=== PATIENT | female | born 1940 | race Caucasian/White ===

== ENCOUNTER 2020-03-06 15:46 | Inpatient (IN) | payer OTHER ==
[~2020-03-06] VITALS: Ht 170.2 cm; Wt 75.3 kg
[2020-03-06 15:55] VITALS: BP 116/84
[2020-03-06 16:32] LABS: BE(vivo) -1.8 mmol/L (-2 to +3); HCO3 22.7 mmol/L (22.0-26.0); PCO2 37.5 mmHg (35.0-45.0); PO2 64.7 mmHg (80.0-100.0); pH 7.399 (7.360-7.450); sO2 92.8 % (92.0-98.0)
[2020-03-06 16:49] LABS: ABSOLUTE NEUTROPHILS 3.8 thou/uL (1.4-8.2); BASOPHILS 0.5 % (0.0-2.0); HEMATOCRIT 36.7 % (37.0-47.0); HEMOGLOBIN 12.3 gm/dL (12.0-15.0); LYMPHOCYTES 19.5 % (24.0-44.0); MCH 31.4 pg (26.0-34.0); MCHC 33.5 g/dL (28.0-37.0); MCV 93.6 fL (80.0-100.0); MONOCYTES 8.9 % (1.0-8.0); PLATELET COUNT 119 thou/uL (150-400); POLYS 71.1 % (36.0-66.0); RBC 3.92 mil/uL (4.20-5.00); RDW 14.8 % (10.5-14.5); WBC 5.4 thou/uL (4.0-11.0)
[2020-03-06 17:09] LABS: ANION GAP 12 mmol/L (7-16); BUN 62 mg/dL (7-18); CALCIUM 9.1 mg/dL (8.5-10.1); CHLORIDE 106 mmol/L (98-107); CO2 22 mmol/L (21-32); CREATININE 2.7 mg/dL (0.6-1.0); GLUCOSE 176 mg/dL (74-106); POTASSIUM 4.8 mmol/L (3.5-5.1); SODIUM 140 mmol/L (136-145)
[2020-03-06 17:19] LABS: ALBUMIN 2.7 g/dL (3.4-5.0); SGOT 83 U/L (15-37); SGPT 27 U/L (30-65); TOTAL BILIRUBIN 0.7 mg/dL (0.2-1.0); TOTAL PROTEIN 7.2 g/dL (6.4-8.2); TROPONIN-I <0.06 ng/mL (<0.06)
[2020-03-06] MEDS ORDERED: NORVASC 2.5 MG2.5 M1 PO (19:05)
[2020-03-06] MEDS ORDERED: CARVEDILOL25 MG PO (19:05)
[2020-03-06] MEDS ORDERED: LEVEMIR100 UNIT/1 SUBQ (19:06)
[2020-03-06] MEDS ORDERED: LEVOTHYROXINE25 MCG PO (19:06)
[2020-03-06] MEDS ORDERED: INVEGA6 MG PO (19:06)
[2020-03-06] MEDS ORDERED: ATORVASTATIN CA20 MG PO (19:07)
[2020-03-06] MEDS ORDERED: METFORMIN HCL500 MG PO (19:07)
[2020-03-06] MEDS ORDERED: LISINOPRIL40 MG PO (19:07)
[2020-03-06] MEDS ORDERED: SYMBICORT160 MCG/4. INH (19:08)
[2020-03-06] MEDS ORDERED: NOVOLOG100 UNIT/1 SUBQ (19:08)
[2020-03-06] MEDS ORDERED: FIBERCON625 M1 PO (19:09)
[2020-03-06] MEDS ORDERED: DAIRY RELIE3000 UNIT PO (19:10)
[2020-03-06 20:02] VITALS: BP 99/53
[2020-03-06 20:42] VITALS: BP 96/46
--- NOTE | 2020-03-06 22:04 | NUR ---
SPOKE TO DTR MARRY, NICOLASA UPDATED. DESIGNATED VISITOR ESTABLISHED AND CHARTED.
[2020-03-07 01:16] VITALS: BP 108/49
--- NOTE | 2020-03-07 03:56 | NUR ---
ADMITTED FROM ER UNDER 'S CARE. PT NON-VERBAL AND DISORIENTED X 4 UPON ARRIVAL. SPOKE TO DTR MARRY OVER THE PHONE AND DTR SAID PT HAS BEEN INCREASINGLY DISORIENTED AND NON-VERBAL. NOTED. VISITED PT AT BEDSIDE. ORDERED URINE SAMPLE AND SPUTUM SAMPLE WELL COVID PCR. REPORTED TO THAT PT IS UNABLE TO COUGH UP SPUTUM EVEN IF SHE'S PRODUCING ANY, PT UNABLE TO FOLLOW DIRECTIONS. PER , IT'S OK FOR SPUTUM NOT TO BE COLLECTED AT THIS TIME. FOR URINE, REPORTED PT INCONTIENET. GAVE ONE TIME ORDER FOR STRAIGHT CATH, COLLECTED AND SENT WITH COVID. WANTS TO TRANSFUSE CONVALESCENT PLASMA. CONSENT WAS PRINTED OUT PER 'S DIRECTION. SAID TO CALL DTR IN AM AND OBTAIN CONSENT AND CALL HIM BACK WITH ADDITIONAL INFO AND CONSENT. WILL ENDORSE TO ONCOMING NURSR OR FOLLOW UP. IV REPLACED AND WRAPPED. VSS. NO S/S ACUTE DISTRESS NOTED OR REPOTED AT THIS TIME. WILL CONT TO MONITOR FOR ANY CHANGES IN CONDITION.
[2020-03-07 04:03] VITALS: BP 106/41
[2020-03-07 06:16] LABS: HEMATOCRIT 36.4 % (37.0-47.0); HEMOGLOBIN 11.8 gm/dL (12.0-15.0); MCHC 32.3 g/dL (28.0-37.0); MCV 95.9 fL (80.0-100.0); RBC 3.8 mil/uL (4.20-5.00); RDW 15.3 % (10.5-14.5); WBC 5.7 thou/uL (4.0-11.0)
[2020-03-07 06:39] LABS: ALBUMIN 2.4 g/dL (3.4-5.0); CALCIUM 8.3 mg/dL (8.5-10.1); CREATININE 3.2 mg/dL (0.6-1.0); POTASSIUM 4.5 mmol/L (3.5-5.1)
[2020-03-07 07:28] VITALS: BP 128/48
--- NOTE | 2020-03-07 07:56 | EKG ---
[facility] [address] [place] [address] ELECTROCARDIOGRAM REPORT Name: SALIMA STARK Room #: 352- ADM IN M.R.#: [id number] Admission: 03/06/20 Attend Phys: Ana Rosa Mccarthy Discharge: Date of : 42 Report #: [id number] THIS REPORT FOR: cc: Derian Schulz MD, Srinath MD Lundgren,Ajit Matta MD [facility] THIS REPORT FOR: //name// [facility] ED Test Date: 2020-03-06 Test Time: 16:44:59 Pat Name: SALIMA STARK Department: Room: [facility] Gender: F Assurance Manager: : 1940 Requested By: Agnes Arellano Order Number: [id number] MD: Ajit Delacruz Measurements Intervals [place] Rate: 84 P: 34 IA: 165 QRS: -17 QRSD: 86 T: 5 QT: 331 QTc: 392 Interpretive Statements Sinus rhythm Borderline left axis deviation Abnormal R-wave progression, late transition No previous ECG available for comparison Electronically Signed On 03-07-2020 7:56:21 CDT by Ajit Delacruz [email or web address] <ELECTRONICALLY SIGNED> By: Ajit Delacruz MD, FACC 03/07/20 0756 [id number] Ajit Delacruz MD, [facility] /EPI
[2020-03-07 11:35] VITALS: BP 137/56
--- NOTE | 2020-03-07 16:33 | NUR ---
ASSESSMENT: CM REVIEWED CHART AND SPOKE WITH PATIENTS DAUGHTER/GUARDIAN ALBERTO [phone]. PT WAS ADMITTED FROM [facility] WHERE SHE TESTED POSITIVE FOR COVID 19 AND WAS FOUND TO BE MORE LETHARGIC THEN USUAL. PT NORMALLY DOES NOT WEAR OXYGEN BUT REQUIRED 6L. PER PATIENTS DAUGHTER PT NORMALLY AMBULATES THERE INDEPENDENTLY, JUST SLOW. CM FAXED CLINICAL TO [facility] TO UPDATE THEM ON CLINICAL. CM CONTACTED ANGEL AT [facility] WHO STATES THEY REQUIRE 2 NEGATIVE COVID TEST BEFORE THEY CAN ACCEPT PATIENTS BACK. CM CONTACTED PATIENTS DAUGHTER TO UPDATE HER ON [facility] PROTOCOL FOR POSITIVE COVID PATIENTS AND THEY WILL NOT ACCEPT BACK UNTIL TWO NEGATIVE TEST RESULTS. CM WILL CONTINUE TO FOLLOW TO ASSIST NEEDED.
[2020-03-07 17:11] VITALS: BP 144/110
[2020-03-07 19:24] VITALS: BP 133/54
--- NOTE | 2020-03-07 19:30 | NUR ---
ASSUMED CARE OF PT AT 0700, PT A GCS OF 9-10 MOST OF THE DAY. PT DOES NOT SEEM TO BE IN ANY PAIN. PT HAS BEEN NON VERBAL THE WHOLE DAY. PT NOTED TO BE POCKETTING FOOD AND SPEECH THERAPY CONSULTED. VSS. DR BEAVERS ON THE OBTAINING OF COSENT FO CONVALESCENT PLASMA, MESSAGE LEFT WIT ANSWERING SERVICE. PT RESTING NOW WITH EYES CLOSED. T
--- NOTE | 2020-03-08 02:05 | NUR ---
PATIENT ASSESSED. SKIN WARM AND DRY.RESP EVEN AND UNLABORED.LETHARGIC , NON VERBAL. DID SEE HER DAUGHTER BY VIDEO CHAT, DID NOT SAY ANYTHING BUT SEEN HER DAUGHTER ALBERTO. TURNED Q 2 HOURS. AMS. DOES NO FOLLOW COMANDS. NO EDEMA NOTED. IV PATENT WITH FLUIDS INFUSING WELL. CONSENT FOR CONVALESCEN BLOOD AND PERMIT TO INFUSED CONSENT BY PHONE WITH DAUGHTER ALBERTO, WITNESS BY 2 RN'S. NPO BECAUSE SHE HAS BEEN POCKETING HER FOOD IN HER CHEEKS.DAUGHTER STATED SHE LIKES BOILED EGGS, COTTAGE CHEESE, AND HER FOOD SOFT. 02 AT 6LNC. DENIES ANY PAIN OR SOA. IV SITE HEALTHY. DR BEAVERS SEEN P[ATIENT TONIGJHT AND HER KNOWS ABOUT GRAM + COCCI IN BLOOD, DIET NEEDS.INCONTENENT HAS A PURVICK CATH. WITH YELLOW RETURN. LUNGS CTA-DISM.SCD'S ON. CONT PLAN OF CARE. T
[2020-03-08 02:06] LABS: HIV ANTIBODY Non Reactive (Non Reactive)
[2020-03-08 04:09] VITALS: BP 130/62
[2020-03-08 06:22] LABS: ABSOLUTE NEUTROPHILS 8.5 thou/uL (1.4-8.2); BASOPHILS 0.1 % (0.0-2.0); HEMATOCRIT 36.9 % (37.0-47.0); HEMOGLOBIN 11.8 gm/dL (12.0-15.0); LYMPHOCYTES 6.6 % (24.0-44.0); MCHC 32.1 g/dL (28.0-37.0); MCV 96.5 fL (80.0-100.0); PLATELET COUNT 130 thou/uL (150-400); POLYS 87.3 % (36.0-66.0); RBC 3.82 mil/uL (4.20-5.00); RDW 15.3 % (10.5-14.5); WBC 9.8 thou/uL (4.0-11.0)
[2020-03-08 06:30] LABS: INR 1.1; PROTIME 10.8 Seconds (9.3-11.4)
[2020-03-08 06:35] LABS: FIBRINOGEN 605.8 mg/dL (210-360)
[2020-03-08 06:41] LABS: ALBUMIN 2.5 g/dL (3.4-5.0); CREATININE 2.6 mg/dL (0.6-1.0); POTASSIUM 4.3 mmol/L (3.5-5.1); TOTAL BILIRUBIN 0.4 mg/dL (0.2-1.0); TOTAL PROTEIN 7.1 g/dL (6.4-8.2)
[2020-03-08 08:08] VITALS: BP 126/56
[2020-03-08 12:01] VITALS: BP 118/80
--- NOTE | 2020-03-08 14:28 | NUR ---
KATIUSKA reviewed chart and spoke with nursing and attending physician. Pt remains in Enhanced Isolation due to COVID-19. Pt remains on IV abx and 6L of O2. ST to evaluate pt. No weekend discharge planned. KATIUSKA spoke with Patti at [facility] to provide update. Per Patti, they are able to accept pt back when medically stable. Will confirm on Wednesday, if facility needs a new COVID test. KATIUSKA is following to assist a needed with discharge planning.
[2020-03-08 16:51] VITALS: BP 129/65
--- NOTE | 2020-03-08 19:46 | NUR ---
PT IS CONFUSED, AND PT DOES NOT TALKING AND DOES NOT FOLLOW COMMANDS, PT IS CONTINUING ISOLATION FOR POSITIVE COVID, PT IS CONTINUING IV ABX AND IV FLUID, PT HAS MEDICATION FOR LOW FEVER TEMP 100.2F, PT NEEDS HELP MEALS AND CHANGE POSITION, PT IS ON O2 6L/MIN/NC, RN HAS UPDATED PT'S INFORMATION TO PT'S FAMILY, ID HAS NEW ORDER TRANSFUSION CONVALESCENT PLASMA 1 UNIT, RN WILL REPORTED TO NEXT SHIFT.
[2020-03-08 21:31] VITALS: BP 144/69
[2020-03-09] VITALS (8 sets, daily range): BP systolic 117–162; BP diastolic 48–100
[2020-03-09 07:43] LABS: CALCIUM 9.4 mg/dL (8.5-10.1); POTASSIUM 4.4 mmol/L (3.5-5.1)
--- NOTE | 2020-03-09 08:12 | NUR ---
ASSUME CARE 1900. PT/VITALS STABLE. A/O TO SELF BUT CAN FOLLOW SOME COMMANDS. MOANS WITH MOVEMENT. 6LNC AND SATS ABOUT 94%. INCONTINENT OF URINE. CONVALESCENT PLASMA TRANSFUSED X 1 UNIT. PLAN IS TO CONTIUE TO MONITOR AND IMPROVE LOC AND RESPIRATORY FUNCTION. WILL CONTINUE TO MONITOR AND FOLLOW WITH POC
[2020-03-09 19:17] LABS: FOLIC ACID 7.3 ng/mL (8.6-58.9); TSH 0.792 uIU/mL (0.358-3.740)
--- NOTE | 2020-03-09 19:40 | NUR ---
PT STILL OPENS HER EYES, BUT PT DOES NOT TALK ,AND PT DOES NOT FOLLOW COMMANDS, PT STARTS EATING AND DRINKING WITH ASSIST, PT IS CONTINUING O2 6L/MIN/NC, PT'S VS ARE STABLE,
[2020-03-09 22:22] LABS: URINE BILIRUBIN NEGATIVE (Negative); URINE BLOOD 3+ (Negative); URINE CLARITY SL CLOUDY; URINE COLOR YELLOW; URINE GLUCOSE-RANDOM* 1+ (Negative); URINE KETONES NEGATIVE (Negative); URINE NITRITE-REFLEX NEGATIVE (Negative); URINE PROTEIN (DIPSTICK) 1+ (Negative); URINE SPECIFIC GRAVITY 1.015 (1.005-1.035); URINE UROBILINOGEN 0.2 E.U./dl (0.2-1.0)
[2020-03-09 22:39] LABS: URINE LEUKOCYTES-REFLEX 1+ (Negative)
[2020-03-09 22:47] LABS: AMORPHOUS URATES Many /LPF (None Seen); URIC ACID CRYSTALS >10 Many /LPF (None Seen)
[2020-03-09 22:48] LABS: BACTERIA-REFLEX >30 Many /HPF (None Seen); COARSE GRANULAR CASTS 0-3 Few /LPF (None Seen); FINE GRANULAR CASTS 0-3 Few /LPF (None Seen); HYALINE CASTS 0-3 Few /LPF (None Seen); MUCUS 4-6 Moderate strn/LPF (None Seen); SQUAMOUS None Seen /LPF (0-3); TRANSITIONAL EPITHEL CELL 0-3 Few /LPF (None Seen)
--- NOTE | 2020-03-10 02:16 | NUR ---
PT CONFUSED , OPENS EYES TO TOUCH OR LOUD VOUICE. MOVES HANDS AT TIMES. SPEECH IS IMCOPREHENSIBLE MOANS. TYLENOL GIVEN FOR POSSIBLE PAIN. PT WAS MOANING. PT REPOSITIONED Q 2 HRS, PT STRAIGHT CATHED AND UA SENT TO LAB. VSS AFEBRILE. SATS 91-95% ON MONITOR. MOISTURE BARRIER TO BUTTOCKS AND PERINEAL AREA. SPOKE WITH PTS DAUGHTER. UNABLRE TO GET FACETIME TO WORK. WILL CONTINUE TO MONITOR PT FOR CHANGES.
[2020-03-10 03:53] VITALS: BP 145/87
[2020-03-10 05:42] LABS: HEMATOCRIT 33.5 % (37.0-47.0); HEMOGLOBIN 10.8 gm/dL (12.0-15.0); MCHC 32.3 g/dL (28.0-37.0); MCV 96.2 fL (80.0-100.0); PLATELET COUNT 126 thou/uL (150-400); RBC 3.48 mil/uL (4.20-5.00); RDW 15.7 % (10.5-14.5); WBC 5.4 thou/uL (4.0-11.0)
--- NOTE | 2020-03-10 05:58 | NUR ---
PT PROGRESSING SLOWLY TOWARDS D/C GOALS VSS AFEBRILE. NSR ON MONITOR SAT 93%. BED ALARM ON .
[2020-03-10 06:11] LABS: ALBUMIN 2.3 g/dL (3.4-5.0); CALCIUM 8.9 mg/dL (8.5-10.1); CREATININE 1.8 mg/dL (0.6-1.0); MAGNESIUM 2.2 mg/dL (1.8-2.4); PHOSPHORUS 2.6 mg/dL (2.5-4.9); POTASSIUM 4.2 mmol/L (3.5-5.1); TOTAL BILIRUBIN 0.4 mg/dL (0.2-1.0); TOTAL PROTEIN 6.9 g/dL (6.4-8.2)
[2020-03-10 07:46] VITALS: BP 142/79
[2020-03-10 07:47] VITALS: BP 142/79
[2020-03-10 11:23] LABS: ABSOLUTE NEUTROPHILS 4.8 thou/uL (1.4-8.2); METAMYELOCYTES 1 %
[2020-03-10 15:25] VITALS: BP 132/112
--- NOTE | 2020-03-10 19:00 | NUR ---
PT STARTED SHIFT ON 6L...WAS INCREASED TO NRB BY NOON...DRS NOTIFIED OF HER STRUGGLING AND DR MOY SPOKE WITH FAMILY AND DECISION WAS MADE FOR [facility] CARES...FAMILY WAS CALLED PER FACETIME AND THEY SPOKE TO HER FOR 30 MIN...AT THAT TIME SHE WAS MEDICATED WITH MORPHINE AND NRB WAS REMOVED AND 10L WAS PLACED ON PATIENT...WILL MONITOR
[2020-03-10 20:53] VITALS: BP 143/83
[2020-03-11 04:33] VITALS: BP 138/59
--- NOTE | 2020-03-11 06:53 | NUR ---
PT NOT PROGRESSING TOWARD D/C GOALS. SHE IS NOW ON COMFORT CARE. MEDICATED SEVERAL TIMES TONIGHT WITH MORPHINE IV FOR LABORED BREATHING. RESPIRATINS BECAME SLOWER THIS AM AROUND 0500 AM. DAUGHTERS WERE NOTIFIED VIA [employer] VIDEO CHAT. BOTH DAUGHTERS ARE VISITING WITH PT. VIA [employer].
[2020-03-11 08:31] VITALS: BP 164/67
--- NOTE | 2020-03-11 16:57 | NUR ---
FAXED CLINICAL UPDATE TO [facility] SPOKE WITH NANCY IN ADM SHE RECEIVED UPDATE. DP TO FOLLOW.
--- NOTE | 2020-03-11 19:22 | NUR ---
PT AWAKE AND FAMILY FACETIMING PATIENT ENTIRE SHIFT...SATS 93% 6L...MEDICATED X 1 FOR AIR HUNGER...APPEARS COMFORTABLE...
[2020-03-11 19:30] VITALS: BP 162/84
--- NOTE | 2020-03-11 22:35 | NUR ---
PT REMAINS ON COMFORT CARE. MORPHINE 4 MG GIVEN FOR AIR HUNGER. SHE IS NOW RESTING BETTER. FAMILY IS FACETIMING PT PRESENTLY. CONTINUING WITH COMFORT MEASURES.
[2020-03-12 03:26] VITALS: BP 143/49
[2020-03-12 04:10] VITALS: BP 129/55
--- NOTE | 2020-03-12 08:31 | NUR ---
PT ON COMFORT CARE. SAT 93-95%. CONTINUING MORPHINE FOR SOA.
[2020-03-12 09:22] VITALS: BP 111/62
--- NOTE | 2020-03-12 17:17 | NUR ---
ASSUMED CARE OF PT AT SHIFT CHANGE. COMFORT CARE CONTINUES. MORPHINE GIVEN NEEDED FOR AIR HUNGER. RESP RATE DECREASED TO 6-7/MIN THIS AFTERNOON. THIS NURSE INTITIATED FACETIME WITH FAMILY AND PT. WILL CONTINUE TO MONITOR.
--- NOTE | 2020-03-12 17:36 | NUR ---
KATIUSKA reviewed chart and spoke with nursing and attending physician. Pt remains on comfort care measures. Pt is Enhanced Isolation due to COVID-19. KATIUSKA spoke with Patti at [facility], who states they are able to accept pt back on hospice if pt is stable for transport. KATIUSKA spoke with pt's dtr, Mindy, via phone to provide update and discuss discharge plan. Pt's dtr states they would like to speak with palliative care physician to discuss plan of care. Plan is to watch pt overnight and see how she is tomorrow. Will determine if pt is stable enough to discharge back to [facility] with hospice. KATIUSKA is following to assist as needed with discharge planning.
[2020-03-12 21:04] VITALS: BP 151/61
--- NOTE | 2020-03-12 21:30 | NUR ---
CONTACTED FAMILY MEMBER MONIK THIS EVENING TO SET UP A VIDEO CHAT WITH SALIMA THE PATIENT. FAMILY WAS GLAD TO SEE THE PT. PT WAS PROVIDED 2MG OF MORPHINE FOR COMFORT MEASURE. PT HAD TREMORS ON BOTH ARMS, ASKED FAMILY MEMBERS, PER THEM IT IS NORMAL FOR HER TO PRESENT THIS ACTION. FAMILY WAS HAPPY TO SEE THEIR MOTHER, STATED GRATITUDE. RN NOTIFIED FAMILY THAT FACETIME CAN BE AVAILABLE TOMORROW NIGHT IF THE PT IS STILL AT FACILITY. LUNG SOUNDS ARE COARSE. CURRENTLY ON 6L OF OXYGEN VIA NC, AT 97% SAO2 AND 77HR. WILL CHECK UP ON PT PERIODICALLY AND UPDATE FAMILY OR NOTES NEEDED. AT THIS TIME PT IS GOING IN AND OUT OF SLEEP, WILL LEAVE PT TO BE TO PROMOTE REST NOW.
[2020-03-13 08:04] VITALS: BP 131/53
[2020-03-13] MEDS ORDERED: MSL20MG/ML SUBLING (12:30)
--- NOTE | 2020-03-13 16:13 | NUR ---
DISCHARGE NOTE: SW reviewed chart and spoke with nursing. Pt in Enhanced Isolation due to COVID-19 on comfort care measures. Pt's repeat test is positive. KATIUSKA left message for medical staff services coordinator at [facility] to discuss pt's return to the facility with orders for hospice to evaluate and admit pt. Palliative care physician spoke with pt's family last evening, who are all agreeable with plan for pt to return to [facility] with hospice. KATIUSKA received call back from Patti at [facility] who states they are able to accept pt back today. Facility requests ambulance transportation to be scheduled between [id number]. KATIUSKA arranged ambulance for 1700. Confirmed that [facility] is aware that pt is COVID positive. KATIUSKA faxed finalized discharge orders/summary and COVID results to [facility]. KATIUSKA spoke with pt's dtr, Ginette, to provide update and notify of discharge time. Pt's dtr is aware and agreeable with plan. Pt's family to initiate hospice at [facility]. Patti has discussed options with pt's family. Chart copy to be updated. Nursing provided with number to call report. No additional SW needs identified at this time, but is available to assist should needs arise.
--- NOTE | 2020-03-13 18:26 | NUR ---
PATIENT DISCHARGED TO [facility] AT THIS TIME. SHE IS STILL NOT EATING OR DRINKING. KEPT CLEAN AND DRY. RESPIRATIONS ARE NON LABORED. HAD MS FOR AIR HUNGER AND IT WAS EFFECTIVE.
== END 2020-03-13 18:18 | disposition hospice, inpatient (51) | DRG 871 ==
LOC: ER 15:46 → EDBD 15:46 → 3W 17:44 → EROBS 17:44 → 3W 20:08
PROVIDERS: Hospitalist; Internal Medicine; Physician Assistant; Specialist; ADMIT Hospitalist; ATTEND Hospitalist
PROC: 30233K1 Transfusion of Nonautologous Frozen Plasma into Peripheral Vein, Percutaneous Approach (ICD-10-PCS; principal; 2020-03-09)
DX: A41.89 Other specified sepsis (principal); U07.1 COVID-19; J96.01 Acute respiratory failure with hypoxia; J12.89 Other viral pneumonia; N17.9 Acute kidney failure, unspecified; E87.0 Hyperosmolality and hypernatremia; A41.2 Sepsis due to unspecified staphylococcus; R65.20 Severe sepsis without septic shock; J44.9 Chronic obstructive pulmonary disease, unspecified; E86.0 Dehydration; G20 Parkinson's disease; F02.80 Dementia in other diseases classified elsewhere, unspecified severity, without behavioral disturbance, psychotic disturbance, mood disturbance, and anxiety; Z51.5 Encounter for palliative care; Z66 Do not resuscitate
CPT/HCPCS: 10879